=== PATIENT | female | born 1955 | race Caucasian/White ===

== ENCOUNTER 2024-09-13 23:54 | Emergency (ER) | payer MEDICARE, OTHER, MEDICAID ==
[2024-09-14] MEDS: Ketorolac 30 MG/ML SDV IM ONE (01:16)
== END 2024-09-14 03:35 | disposition home or self-care (01) ==
LOC: FB.ED 23:54
DX: S82.144A Nondisplaced bicondylar fracture of right tibia, initial encounter for closed fracture (principal); Z87.891 Personal history of nicotine dependence; Z88.5 Allergy status to narcotic agent; W01.0XXA Fall on same level from slipping, tripping and stumbling without subsequent striking against object, initial encounter; Y92.009 Unspecified place in unspecified non-institutional (private) residence as the place of occurrence of the external cause
CPT/HCPCS: 73562; 73700; 96372; 99284; J1885